=== PATIENT | male | born 1965 | race Caucasian/White ===

== ENCOUNTER → 2021-07-05 | Outpatient (CLI) | payer OTHER | LOC: SJCVCIMAG 08:00 | PROVIDERS: ATTEND Internal Medicine Cardiovascular Disease | DX: R00.2 Palpitations (principal); R06.00 Dyspnea, unspecified; R53.83 Other fatigue; I10 Essential (primary) hypertension; E78.5 Hyperlipidemia, unspecified; E11.9 Type 2 diabetes mellitus without complications ==